=== PATIENT | female | born 1955 | race Caucasian/White ===

== ENCOUNTER 2017-11-07 23:52 | Emergency (ER) | payer MEDICARE, MEDICAID ==
[2017-11-08] MEDS ORDERED: Albuterol/Ipratropium 3.0-0.5 MG/3 ML Neb Soln NEB ONE (00:25)
[2017-11-08 00:26] VITALS: BP 129/66
--- NOTE | 2017-11-08 00:43 | EDM.PDOC ---
ED HPI GENERAL MEDICAL PROBLEM - General Chief Complaint: Respiratory Problem Stated Complaint: COUGHING FOR COUPLE MONTHS Time Seen by Provider: 11/08/17 00:20 Source of Information: Reports: Patient History Limitations: Reports: No Limitations - History of Present Illness INITIAL COMMENTS - FREE TEXT/NARRATIVE: 62-year-old female, chronic smoker who was at a cough for 2 months without significant production or fever. Tonight she finally just got tired of it and came into the emergency room. No chest pain, nausea or vomiting. She does break out in sweats when she coughs so hard. Onset: Unknown/Unsure (Several months) Severity: Moderate (Cough is very persistent and uncomfortable) Associated Symptoms: Reports: Diaphoresis, Malaise, Shortness of Breath. 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: Musculoskeletal History: Reports: RA Psychiatric History: Reports: Depression - Infectious Disease History Infectious Disease History: Reports: Chicken Pox - Past Surgical History Musculoskeletal Surgical History: Reports: Hip Replacement Social & Family History - Tobacco Use Smoking Status *Q: Current Every Day Smoker Years of Tobacco use: 45 Packs/Tins Daily: 0.5 Used Tobacco, but Quit: No Second Hand Smoke Exposure: Yes - Caffeine Use Caffeine Use: Reports: Coffee, Soda - Recreational Drug Use Recreational Drug Use: No ED ROS GENERAL - Review of Systems Review Of Systems: See Below Constitutional: Denies: Fever, Chills Respiratory: Reports: Shortness of Breath, Wheezing, Cough. Denies: Sputum Cardiovascular: Denies: Chest Pain GI/Abdominal: Denies: Abdominal Pain, Nausea, Vomiting Skin: Reports: Diaphoresis Neurological: Denies: Headache ED EXAM, GENERAL - Physical Exam Exam: See Below Exam Limited By: No Limitations General Appearance: Alert, No Apparent Distress (Looks uncomfortable because of the persistent dry cough) Head: Atraumatic Respiratory/Chest: No Respiratory Distress, Crackles (Bibasilar crackles and diffuse expiratory wheezes are present) Cardiovascular: Regular Rate, Rhythm Extremities: Pedal Edema (Trace symmetric edema), Other (Patient has significant ulnar deviation of the MP joints from rheumatoid arthritis) Neurological: Alert, Oriented Skin Exam: Warm, Dry Course - Vital Signs Last Recorded V/S: Last Vital Signs Temp 97.9 F 11/08/17 00:12 Pulse 86 11/08/17 00:12 Resp 24 H 11/08/17 00:12 BP 129/66 11/08/17 00:12 Pulse Ox 95 11/08/17 00:30 - Orders/Labs/Meds Orders: Active Orders 24 hr Category Date Time Status RT Aerosol Therapy [RC] ASDIRECTED Care 11/08/17 00:25 Active Chest 2V [CR] Routine Exams 11/08/17 00:24 Taken Meds: Medications Discontinued Medications Generic Name Dose Route Start Last Admin Trade Name Ken PRN Reason Stop Dose Admin Albuterol/Ipratropium 3 ml 11/08/17 00:25 11/08/17 00:38 Duoneb 3.0-0.5 Mg/3 Ml NEB 11/08/17 00:26 3 ml ONETIME ONE Administration - Re-Assessments/Exams Free Text/Narrative Re-Assessment/Exam: 11/08/17 00:52 A DuoNeb was given a two-view chest x-ray obtained. No obvious infiltrates are seen, patient x-ray is stable from 4 months prior. Some objective and subjective improvement was seen after the DuoNeb. Patient will be discharged on a course of Zithromax, 60 mg of prednisone daily for 5 days, an albuterol inhaler to use as needed and benzonatate Perles for cough suppression. She should recheck in 3-5 days if not improving as a bronchoscopy or further studies may be needed. Departure - Departure Time of Disposition: 01:11 Disposition: Home, Self-Care 01 Condition: Good Clinical Impression: Bronchitis, Rheumatoid arthritis - Discharge Information Instructions: Acute Bronchitis, Adult, [id number] Referrals: Roberto Lopez MD [Primary Care Provider] - Forms: ED Department Discharge Care Plan Goals: Take 6 pills of prednisone daily with food for 5 consecutive days. Take course of Zithromax as directed, and use benzonatate Perles for cough suppression as directed. 1 to 2 puffs off the inhaler every 3-4 hours may help, and recheck in 4-5 days if not improving as you may need further workup or evaluation. - My Orders Last 24 Hours: My Active Orders 11/08/17 00:24 Chest 2V [CR] Routine 11/08/17 00:25 RT Aerosol Therapy [RC] ASDIRECTED - Assessment/Plan Last 24 Hours: My Active Orders 11/08/17 00:24 Chest 2V [CR] Routine 11/08/17 00:25 RT Aerosol Therapy [RC] ASDIRECTED
--- NOTE | 2017-11-08 10:17 | CR ---
CHEST: 2 view CLINICAL HISTORY:Dyspnea COMPARISON:2015 FINDINGS: Heart size is normal. There is some cephalization of the pulmonary vascularity. There is d iffuse interstitial prominence. This is increased since 2015. There are no effusions. IMPRESSION: Vascular cephalization and interstitial prominence suggests the CHF. Some of this inters titial prominence may be chronic
== END 2017-11-08 01:11 | disposition home or self-care (01) ==
LOC: JP.ED 23:52
DX: J40 Bronchitis, not specified as acute or chronic (principal); M06.9 Rheumatoid arthritis, unspecified; F17.210 Nicotine dependence, cigarettes, uncomplicated
CPT/HCPCS: 71046; 71046-26; 94640; 99284-25; J7620-GY

== ENCOUNTER → 2018-07-06 | Outpatient (CLI) | payer MEDICARE, MEDICAID ==
--- NOTE | 2018-07-07 13:29 | CRLCT ---
Examination: CT chest Indication: Pulmonary nodule Comparison: Chest CT dated 12/01/2017 Technique: Contiguous axial CT images of the chest were acquired without IV contrast. Coronal and sagittal reformations generated and reviewed. Findings: Extensive reticular lines are noted in the periphery of the lungs, greatest in the lung bases, but also noted in the upper lungs as well. There is mild honeycombing noted in the lung bases. No traction bronchiectasis. No significant ground-glass opacities. There is a 6 millimeter left upper lobe density on axial image 51 which is unchanged from 1 year prior. It appears flat on the sagittal reformations suggesting that it is scar tissue rather than a true nodule. No additional pulmonary nodules are identified though the reticular opacities could obscure some small nodules. Central airways are patent. Pleural spaces are clear. Normal heart size. Coronary artery calcifications. No pericardial effusion. Normal caliber main pulmonary artery. Normal course and caliber of thoracic aorta. No enlarged mediastinal, axillary, or supraclavicular lymphadenopathy by CT size criteria. Postsurgical changes at the diaphragmatic hiatus with a small hiatal hernia is noted. Visualized portions of thyroid unremarkable. In the upper abdomen, there is some contour irregularity of the left kidney which appeared to be renal lesion on the prior contrast enhanced CT. No acute or aggressive appearing osseous lesions. Impression: 1. Unchanged subpleural fibrosis, worst in lung bases with some mild areas of honeycombing. This is suggestive of UIP. It is not significantly progressed since the prior examination. 2. 6 millimeter nodular density in left upper lobe is unchanged from prior exam. No new or enlarging pulmonary nodules are identified. 3. Unchanged small diaphragmatic hernia. 4. Unchanged possible mass in left kidney which is not well characterized on a noncontrast examination. This could be a dense cyst. A malignancy is not excluded. If this has not been worked up in the interval, recommend renal ultrasound for further characterization. Please note that all CT scans at this facility use dose modulation, iterative reconstruction, and/or weight-based dosing when appropriate to reduce radiation dose to as low as reasonably achievable. Dictated by Garry Elaine MD @ Jul 07 2018 12:50PM Signed by Dr. Garry Elaine @ Jul 07 2018 1:27PM
== END | disposition home or self-care (01) ==
LOC: JP.CT 10:54
PROVIDERS: ATTEND Family Medicine
DX: R91.8 Other nonspecific abnormal finding of lung field (principal); J94.1 Fibrothorax; J98.4 Other disorders of lung; K44.9 Diaphragmatic hernia without obstruction or gangrene
CPT/HCPCS: 71250

== ENCOUNTER 2018-07-20 07:44 | Emergency (ER) | payer MEDICARE, MEDICAID ==
[2018-07-20] MEDS ORDERED: Amoxicillin/Clavulanate K 875-125 MG Tab PO ONE (07:46)
[2018-07-20] MEDS ORDERED: Acetaminophen/oxyCODONE 325-5 MG Tab PO ONE (07:52)
[2018-07-20] MEDS ORDERED: Lidocaine 2% 20 ML MDV INJECT ONE (07:53)
[2018-07-20] MEDS ORDERED: Diphtheria,Pertussis(Acell),Tetanus Vaccine 0.5 ML SDV IM ONE (07:53)
[2018-07-20] MEDS ORDERED: Bacitracin Oint 1 GM U/D Packet TOP ONE (07:55)
--- NOTE | 2018-07-20 07:59 | EDM.PDOC ---
ED HPI GENERAL MEDICAL PROBLEM - General Chief Complaint: Bite:Animal, Insect Stated Complaint: DOG BITE RIGHT ARM Time Seen by Provider: 07/20/18 07:45 Source of Information: Reports: Patient, Family, Old Records History Limitations: Reports: No Limitations - History of Present Illness INITIAL COMMENTS - FREE TEXT/NARRATIVE: 62 yo female presents after being bitten by her daughter's dog this morning. The dog is fully vaccinated. She herself may be due for a tetanus booster. There was not a lot of bleeding at home. She denies numbness of that right hand/ arm. 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 (see below) (none) - Related Data Allergies Allergy/AdvReac Type Severity Reaction Status Date / Time No Known Allergies Allergy Verified 12/01/17 20:42 Home Meds: Home Meds Cyclobenzaprine [Flexeril] 5 mg PO TID PRN 03/21/13 [History] Pramipexole [Mirapex] 0.5 mg PO TID 03/21/13 [History] Magnesium Hydroxide [Milk of Magnesia] 30 ml PO DAILY PRN #2 ml 05/17/14 [Rx] Albuterol Sulfate [Albuterol Sulfate Hfa] 1 - 2 puff IH Q4H PRN 06/20/18 [ History] Benzonatate [Tessalon Perle] 100 mg PO TID 06/20/18 [History] Calcium Carbonate/Vitamin D3 [Calcium 600 + D3 Softgel] 1 each PO BID 06/20/18 [ History] Cholecalciferol (Vitamin D3) [Vitamin D3] 1,000 unit PO DAILY 06/20/18 [History] Furosemide [Lasix] 20 mg PO DAILY PRN 06/20/18 [History] Ipratropium/Albuterol Sulfate [Iprat-Albut 0.5-3(2.5) MG/3 ML] 3 ml IH Q6H PRN 06/20/18 [History] Nystatin [Mycostatin] 5 ml PO QID 06/20/18 [History] Omeprazole 40 mg PO ACBREAKFAST 06/20/18 [History] Oxybutynin Chloride 5 mg PO BID 06/20/18 [History] guaiFENesin [Mucinex] 600 mg PO BID 06/20/18 [History] Past Medical History HEENT History: Reports: Impaired Vision 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: Musculoskeletal History: Reports: RA, Other (See Below) Other Musculoskeletal History: Restless Legs Psychiatric History: Reports: Depression - Infectious Disease History Infectious Disease History: Reports: Chicken Pox - Past Surgical History HEENT Surgical History: Reports: None Cardiovascular Surgical History: Reports: None Musculoskeletal Surgical History: Reports: Hip Replacement Social & Family History - Caffeine Use Caffeine Use: Reports: Coffee ED ROS GENERAL - Review of Systems Review Of Systems: See Below Constitutional: Reports: No Symptoms Respiratory: Reports: No Symptoms Cardiovascular: Reports: No Symptoms GI/Abdominal: Reports: No Symptoms Musculoskeletal: Reports: Arm Pain (right) Skin: Reports: Wound (gaping large irregular laceration to the prox/lateral R forearm(dog bite).) Neurological: Reports: No Symptoms Psychiatric: Reports: No Symptoms ED EXAM, ANIMAL BITE - Physical Exam Exam: See Below Exam Limited By: No Limitations General Appearance: Alert, WD/WN, No Apparent Distress Extremities: Other (large wound to the prox/lateral R forearm. No active bleeding. ) Neurological: Alert, Oriented, CN II-XII Intact, Normal Cognition, No Motor/ Sensory Deficits Psychiatric: Normal Affect, Normal Mood Skin Exam: Normal Color, Other (laceration R forearm.) Lymphadenopathy: Bilateral: No Adenopathy ED ANIMAL BITE PROCEDURES - Laceration/Wound Repair Right Lateral Arm Lac/Wound Length In cm: 10 Appearance: Subcutaneous, Irregular Distal NVT: Neuro & Vascular Intact, No Tendon Injury Anesthetic Type: Local Local Anesthesia - Lidocaine (Xylocaine): 2% Plain Local Anesthetic Volume: Other (18) Skin Prep: Saline Saline Irrigation (cc's): 180 Exploration/Debridement/Repair: Wound Explored, Minimal Debridement Closed With: Sutures Suture Size: other (4-0 and 5-0) # of Sutures: 14 Suture Type: Nylon, Interrupted, Simple, Mattress (vertical) Drain Placement: No Sterile Dressing Applied: Nurse Tetanus Status Addressed: Yes Complications: No Course - Vital Signs Last Recorded V/S: Last Vital Signs Temp 36.0 C 07/20/18 08:06 Pulse 83 07/20/18 08:06 Resp 22 H 07/20/18 08:06 BP 136/82 07/20/18 08:06 Pulse Ox 94 L 07/20/18 08:06 - Orders/Labs/Meds Orders: Active Orders 24 hr Category Date Time Status Vaccines to be Administered [RC] PER UNIT ROUTINE Care 07/20/18 07:53 Active Meds: Medications Discontinued Medications Generic Name Dose Route Start Last Admin Trade Name Ken PRN Reason Stop Dose Admin Amoxicillin/Clavulanate Potassium 1 tab 07/20/18 07:46 07/20/18 07:58 Augmentin 875 Mg/125 Mg PO 07/20/18 07:47 1 tab ONETIME ONE Administration Bacitracin 3 dose 07/20/18 07:55 Bacitracin Oint 1 Gm TOP 07/20/18 07:56 ONETIME ONE Diphtheria/Tetanus/Acell Pertussis 0.5 ml 07/20/18 07:53 07/20/18 08:00 Adacel IM 07/20/18 07:54 0.5 ml .ONCE ONE Administration Lidocaine HCl 20 ml 07/20/18 07:53 07/20/18 08:01 Xylocaine 2% INJECT 07/20/18 07:54 20 ml ONETIME ONE Administration Oxycodone/Acetaminophen 1 tab 07/20/18 07:52 07/20/18 07:58 Percocet 325-5 Mg PO 07/20/18 07:53 1 tab ONETIME ONE Administration Departure - Departure Time of Disposition: 09:00 Disposition: Home, Self-Care 01 Condition: Fair Clinical Impression: Dog bite of forearm Qualifiers: Encounter type: initial encounter Laterality: right Qualified Code(s): S51.851A - Open bite of right forearm, initial encounter; W54.0XXA - Bitten by dog, initial encounter Arm laceration Qualifiers: Encounter type: initial encounter Laterality: right Qualified Code(s): S41.111A - Laceration without foreign body of right upper arm, initial encounter - Discharge Information *PRESCRIPTION DRUG MONITORING PROGRAM REVIEWED*: No *COPY OF PRESCRIPTION DRUG MONITORING REPORT IN PATIENT SHELLY: No Instructions: Animal Bite, Adult, [id number] Referrals: PCP,None [Primary Care Provider] - Forms: ED Department Discharge Additional Instructions: Clean wound twice daily with soap and water. Dry. Apply Bacitracin ointment and a new dressing. Take acetaminophen 1000 mg every 6 hrs as needed for pain relief. Wound check with your doctor on Wednesday, call for an appt. Stitches out in 10 days. Take Augmentin every 12 hrs with food until gone. - My Orders Last 24 Hours: My Active Orders 07/20/18 07:53 Vaccines to be Administered [RC] PER UNIT ROUTINE - Assessment/Plan Last 24 Hours: My Active Orders 07/20/18 07:53 Vaccines to be Administered [RC] PER UNIT ROUTINE
[2018-07-20 08:00] VITALS: BP 136/82
== END 2018-07-20 09:26 | disposition home or self-care (01) ==
LOC: JP.ED 07:44
DX: S51.851A Open bite of right forearm, initial encounter (principal); F32.9 Major depressive disorder, single episode, unspecified; Z79.899 Other long term (current) drug therapy; Z23 Encounter for immunization; W54.0XXA Bitten by dog, initial encounter
CPT/HCPCS: 12004; 90471; 90715; 99282; 99283; A9270; J2001

== ENCOUNTER 2020-03-28 15:43 | Inpatient (IN) | payer MEDICARE, MEDICAID ==
[2020-03-28] MEDS ORDERED: Albuterol 0.083% 2.5 MG/3 ML Neb Soln NEB PRN (15:51)
[2020-03-28] MEDS ORDERED: Sodium Chloride 0.9% 10 ML Syringe FLUSH PRN (15:51)
[2020-03-28] MEDS ORDERED: Polyethylene Glycol 3350 Powder 17 GM Packet PO PRN (15:51)
[2020-03-28] MEDS ORDERED: Ondansetron 4 MG/2 ML SDV IV PRN (15:51)
[2020-03-28] MEDS ORDERED: Acetaminophen 325 MG Tab PO PRN (15:51)
--- NOTE | 2020-03-28 16:05 | PCM.HP.2 ---
H&P History of Present Illness - General Date of Service: 03/28/20 Admit Problem/Dx: Admission Diagnosis/Problem Admission Diagnosis/Problem Hypoxia Source of Information: Patient, Old Records, Provider, RN Notes Reviewed History Limitations: Reports: No Limitations - History of Present Illness Initial Comments - Free Text/Narative: Ms. Montano is a 64-year-old woman who was admitted as a direct admission from the clinic with hypoxia and increase in peripheral edema secondary to underlying diastolic congestive heart failure and pulmonary fibrosis. Over the past few we eks she is experienced progressive increase in peripheral edema associated with weight gain. She chronically takes diuretic therapy and despite recent increase in dose there has not been significant improvement in her peripheral edema. She is short of breath with activity but denies that this is significantly worse over the past few weeks. Prior echocardiogram in 2019 did document moderate diastolic congestive heart failure. At that time left ventricular systolic function was within normal range. She has known pulmonary fibrosis and does have supplemental oxygen available for use at home, but mainly uses this at night and rarely during the day. She denies recent symptoms of infection and has had no history of pulmonary embolism. - Related Data Allergies/Adverse Reactions: Allergies Allergy/AdvReac Type Severity Reaction Status Date / Time No Known Allergies Allergy Verified 12/01/17 20:42 Home Medications: Home Meds Cyclobenzaprine [Flexeril] 5 mg PO TID PRN 03/21/13 [History] Pramipexole [Mirapex] 2.5 mg PO BEDTIME MDD 5 tabs of 0.5mg 03/21/13 [History] Cholecalciferol (Vitamin D3) [Vitamin D3] 1,000 unit PO DAILY 06/20/18 [History] Ipratropium/Albuterol Sulfate [Iprat-Albut 0.5-3(2.5) MG/3 ML] 3 ml IH Q6H PRN 06/20/18 [History] Oxybutynin Chloride 5 mg PO BID 06/20/18 [History] guaiFENesin [Mucinex] 600 mg PO BID PRN 06/20/18 [History] Past Medical History HEENT History: Reports: Impaired Vision 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: Musculoskeletal History: Reports: RA, Other (See Below) Other Musculoskeletal History: Restless Legs Psychiatric History: Reports: Depression - Infectious Disease History Infectious Disease History: Reports: Chicken Pox - Past Surgical History HEENT Surgical History: Reports: None Cardiovascular Surgical History: Reports: None Musculoskeletal Surgical History: Reports: Hip Replacement Social & Family History - Caffeine Use Caffeine Use: Reports: Coffee H&P Review of Systems - Review of Systems: Review Of Systems: See Below General: Reports: No Symptoms HEENT: Reports: No Symptoms Pulmonary: Reports: Shortness of Breath, Cough. Denies: Wheezing, Pleuritic Chest Pain, Sputum, Hemoptysis Cardiovascular: Reports: Dyspnea on Exertion, Edema. Denies: Chest Pain, Palpitations, Orthopnea, PND, Lightheadedness Gastrointestinal: Reports: No Symptoms Genitourinary: Reports: No Symptoms Musculoskeletal: Reports: No Symptoms Skin: Reports: No Symptoms Psychiatric: Reports: No Symptoms Neurological: Reports: No Symptoms Hematologic/Lymphatic: Reports: No Symptoms Immunologic: Reports: No Symptoms Exam - Exam Exam: See Below - Exam Quality Assessment: DVT Prophylaxis. No: Supplemental Oxygen General: Alert, Oriented, Cooperative, Mild Distress HEENT: Conjunctiva Clear, Hearing Intact, Mucosa Moist & [place], Normal Nasal Septum, Posterior Pharynx Clear, Pupils Equal Neck: Supple, Trachea Midline, +2 Carotid Pulse wo Bruit Lungs: Decreased Breath Sounds, Crackles. No: Rales, Rhonchi, Wheezing Cardiovascular: Regular Rate, Regular Rhythm, Normal S1, Normal S2. No: Systolic Murmur, Diastolic Murmur GI/Abdominal Exam: Soft, Non-Tender, No Organomegaly, No Distention Extremities: Non-Tender, Pedal Edema Skin: Warm, Dry, Intact Neurological: Cranial Nerves Intact, Strength Equal Bilateral, Normal Speech, Normal Tone, Sensation Intact. No: Focal Deficit Neuro Extensive - Mental Status: Alert, Oriented x3, Normal Mood/Affect, Normal Cognition, Memory Intact - Patient Data Result Diagrams: 03/28/20 16:40 03/28/20 16:40 *Q Meaningful Use (ADM) - VTE Risk Assess *Q Each Risk Factor Represents 1 Point: Swollen Legs, Current, Obesity ( BMI > 25 kg/m2), Abnormal Pulmonary Function (COPD) Total Score 1 Point Risk Factors: 3 Each Risk Factor Represents 2 Points: Age 60 - 74 Years Total Score 2 Point Risk Factors: 2 Each Risk Factor Represents 3 Points: None Total Score 3 Point Risk Factors: 0 Each Risk Factor Represents 5 Points: None Total Score 5 Point Risk Factors: 0 Venous Thromboembolism Risk Factor Score *Q: 5 Problem List Initiated/Reviewed/Updated: Yes Orders Last 24hrs: Active Orders 24 hr Category Date Time Status Patient Status [ADT] Routine ADT 03/28/20 15:51 Active Cardiac Monitoring [RC] .As Directed Care 03/28/20 15:52 Active Height and Weight [RC] DAILY Care 03/28/20 15:51 Active Intake and Output [RC] QSHIFT Care 03/28/20 15:51 Active Notify Provider Vital Signs [RC] ASDIRECTED Care 03/28/20 15:51 Active Oxygen Therapy [RC] PRN Care 03/28/20 15:51 Active Pulse Oximetry [RC] CONTINUOUS Care 03/28/20 15:52 Active RT Aerosol Therapy [RC] ASDIRECTED Care 03/28/20 15:54 Active Up With Assistance [RC] ASDIRECTED Care 03/28/20 15:51 Active Up to Chair [RC] QID Care 03/28/20 15:51 Active VTE/DVT Education [RC] Per Unit Routine Care 03/28/20 15:51 Active Vital Signs [RC] Q4H Care 03/28/20 15:51 Active 2 Gram Sodium Diet [DIET] Diet 03/28/20 Lunch Active Ang Chest [CT] Stat Exams 03/28/20 15:56 Ordered BLOOD GAS ARTERIAL [BG] Stat Lab 03/28/20 15:51 Ordered C-REACTIVE PROTEIN [CHEM] Stat Lab 03/28/20 15:51 Ordered CBC WITH AUTO DIFF [HEME] Stat Lab 03/28/20 15:51 Ordered COMPREHENSIVE METABOLIC PN,CMP [CHEM] Stat Lab 03/28/20 15:51 Ordered CORONAVIRUS COVID-19, OPAL Stat Lab 03/28/20 15:56 Ordered MAGNESIUM [CHEM] Stat Lab 03/28/20 15:51 Ordered PROCALCITONIN [CHEM] Stat Lab 03/28/20 15:56 Ordered TROPONIN I [CHEM] Stat Lab 03/28/20 15:51 Ordered Acetaminophen [TylenoL] Med 03/28/20 15:51 Ordered 650 mg PO Q4H PRN Albuterol [Proventil Neb Soln] Med 03/28/20 15:51 Ordered 2.5 mg NEB Q4H PRN Enoxaparin [Lovenox] Med 03/28/20 16:00 Ordered 40 mg SUBCUT DAILY Ondansetron [Zofran] Med 03/28/20 15:51 Ordered 4 mg IV Q4H PRN Sodium Chloride 0.9% [Saline Flush] Med 03/28/20 15:51 Ordered 10 ml FLUSH ASDIRECTED PRN polyethylene glycoL 3350 [MiraLAX] Med 03/28/20 15:51 Ordered 17 gm PO DAILY PRN Saline Lock Insert [OM.PC] Routine Oth 03/28/20 15:51 Ordered Resuscitation Status Routine Resus Stat 03/28/20 15:51 Ordered Medication Orders Acetaminophen (Tylenol) 650 mg PO Q4H PRN PRN Reason: Pain (Mild 1-3)/fever Albuterol (Proventil Neb Soln) 2.5 mg NEB Q4H PRN PRN Reason: Shortness Of Breath/wheezing Enoxaparin Sodium (Lovenox) 40 mg SUBCUT DAILY K[place]LEY Ondansetron HCl (Zofran) 4 mg IV Q4H PRN PRN Reason: Nausea/Vomiting Polyethylene Glycol (Miralax) 17 gm PO DAILY PRN PRN Reason: Constipation Sodium Chloride (Saline Flush) 10 ml FLUSH ASDIRECTED PRN PRN Reason: Keep Vein Open Assessment/Plan Comment:: ASSESSMENT AND PLAN HYPOXIC RESPIRATORY COMPROMISE-she has a known history of diastolic heart failure as well as pulmonary fibrosis and does use supplemental oxygen at home, although not as instructed. She was found to be hypoxic on initial presentation to the clinic. On initial presentation here at the hospital her oxygen saturation is in the mid 90s on room air. -CT angiogram of the chest to evaluate for pulmonary emboli, fluid, and/or infection -Supplemental oxygen as needed -Continuous pulse oximetry PERIPHERAL EDEMA-she has known diastolic congestive heart failure and given her pulmonary disease may have a component of cor pulmonale. -Furosemide 40 mg IV now -Echocardiogram not available until April 01, may need to be obtained as an outpatient DIASTOLIC CONGESTIVE HEART FAILURE -Echocardiogram as above PULMONARY FIBROSIS MAINTENANCE ISSUES -DVT prophylaxis; Lovenox 40 mg subcu daily -GI prophylaxis; not indicated -Hicks catheter; not indicated -Nutrition; 2 g sodium diet -Nicotine dependence; not required CODE STATUS-FULL CODE ADMISSION STATUS-patient will be admitted to inpatient status, expect at least a 2 night hospital stay for evaluation and management of problems as outlined above. At the time of this admission I do not reasonably expected evaluation and management of this problem will require more than a 96 hour hospital stay. DISPOSITION-anticipate discharge to home after the hospital stay. PRIMARY CARE PROVIDER-Dr. Winter - Mortality Measure Prognosis:: Good
[2020-03-28 17:30] LABS: CORONAVIRUS COVID-19 NAA NEGATIVE (NEGATIVE)
[2020-03-28] MEDS ORDERED: Sodium Chloride 0.9% 10 ML Syringe FLUSH ONE (17:34)
[2020-03-28] MEDS ORDERED: Albuterol/Ipratropium 3.0-0.5 MG/3 ML Neb Soln INH PRN (17:41)
[2020-03-28] MEDS ORDERED: Cyclobenzaprine 10 MG Tab PO PRN (17:41)
[2020-03-28] MEDS ORDERED: Furosemide 40 MG/4 ML VIAL IVPUSH ONE (17:42)
[2020-03-28] MEDS ORDERED: Sodium Chloride 0.9% 100 ML IV SCH (17:45)
[2020-03-28] MEDS ORDERED: Iopamidol 755 Mg/ML 100 ML Bottle IV SCH (17:45)
[2020-03-28] MEDS: Enoxaparin 40 MG/0.4 ML Syringe SUBCUT SCH (18:07)
--- NOTE | 2020-03-28 19:34 | CRLCT ---
INDICATION: Hypoxia COMPARISON: 11/10/2018 TECHNIQUE: CT volumetric acquisition was performed of the thorax during intravenous infusion of 100 cc Isovue 370 nonionic intravenous contrast. Please note that all CT scans at this facility use dose modulation, iterative reconstruction, and/or weight-based dosing when appropriate to reduce radiation dose to as low as reasonably achievable. FINDINGS: No pulmonary embolism is present. Extensive bilateral pulmonary fibrosis has increased since the prior study with areas honeycombing in a peripheral distribution within the mid and lower lung zones. No pleural effusion. No pneumothorax. Mild mediastinum and bilateral hilar adenopathy. No compression fracture. Upper abdomen unremarkable. IMPRESSION: No evidence of pulmonary thromboembolism. Extensive bilateral pulmonary fibrosis which has worsened since the prior study. Please note that all CT scans at this facility use dose modulation, iterative reconstruction, and/or weight-based dosing when appropriate to reduce radiation dose to as low as reasonably achievable. Dictated by Roberto Mccarthy MD @ Mar 28 2020 7:20PM Signed by Dr. Roberto Mccarthy @ Mar 28 2020 7:33PM
[2020-03-28] MEDS: Pramipexole 0.5 MG Tab PO SCH (20:57)
[2020-03-28] MEDS: Oxybutynin 5 MG Tab PO SCH (20:57)
[2020-03-28] MEDS ORDERED: Pramipexole 0.5 MG Tab PO SCH (21:00)
[2020-03-29] MEDS ORDERED: Furosemide 40 MG/4 ML VIAL IVPUSH ONE ×2 (08:20→18:00)
[2020-03-29] MEDS: Oxybutynin 5 MG Tab PO SCH ×2 (09:35→20:47)
--- NOTE | 2020-03-29 09:53 | PCM.PN ---
- General Info Date of Service: 03/29/20 Subjective Update: Ms. Montano has been stable since admission through the clinic yesterday. During the night did require use of supplemental oxygen. She has had a good diuresis with initial dose of furosemide and good improvement in her peripheral edema. CT scan of the chest with contrast showed no evidence of pulmonary emboli, infection, or fluid. Scan did document significant scarring consistent with pulmonary fibrosis. Functional Status: Reports: Tolerating Diet, Urinating - Review of Systems General: Reports: Weakness, Fatigue. Denies: Fever, Chills Pulmonary: Reports: Shortness of Breath, Cough. Denies: Pleuritic Chest Pain, Sputum, Hemoptysis, Wheezing Cardiovascular: Reports: Dyspnea on Exertion, Edema. Denies: Chest Pain, Palpitations, Orthopnea, PND, Lightheadedness Gastrointestinal: Reports: No Symptoms - Patient Data Vitals - Most Recent: Last Vital Signs Temp 97.5 F 03/29/20 08:00 Pulse 81 03/28/20 18:00 Resp 19 03/29/20 08:00 BP 116/66 03/29/20 08:00 Pulse Ox 95 03/29/20 08:00 Weight - Most Recent: 222 lb 4.814 oz I&O - Last 24 Hours: Intake & Output 03/28/20 03/29/20 03/29/20 22:59 06:59 14:59 Intake Total 480 520 Output Total 1750 400 Balance -1270 120 Lab Results Last 24 Hours: Laboratory Results - last 24 hr 03/28/20 03/28/20 03/28/20 Range/Units 16:40 16:40 16:40 WBC 9.2 (4.5-11.0) K/uL RBC 4.66 (3.30-5.50) M/uL Hgb 11.4 L (12.0-15.0) g/dL Hct 37.0 (36.0-48.0) % MCV 79 L (80-98) fL MCH 25 L (27-31) pg MCHC 31 L (32-36) % Plt Count 269 (150-400) K/uL Neut % (Auto) 63 (36-66) % Lymph % (Auto) 20 L (24-44) % Bonner % (Auto) 11 H (2-6) % Eos % (Auto) 5 H (2-4) % Baso % (Auto) 1 (0-1) % Sodium 141 (140-148) mmol/L Potassium 4.1 (3.6-5.2) mmol/L Chloride 104 (100-108) mmol/L Carbon Dioxide 26 (21-32) mmol/L Anion Gap 10.9 (5.0-14.0) mmol/L BUN 21 H D (7-18) mg/dL Creatinine 0.8 (0.6-1.0) mg/dL Est Cr Clr Drug Dosing TNP Estimated GFR (MDRD) > 60 (>60) Glucose 95 (74-106) mg/dL Calcium 9.5 (8.5-10.1) mg/dL Magnesium 2.1 (1.8-2.4) mg/dL Total Bilirubin 0.5 (0.2-1.0) mg/dL AST 20 (15-37) U/L ALT 24 (12-78) U/L Alkaline Phosphatase 165 H (46-116) U/L Troponin I < 0.017 (0.000-0.056) ng/mL C-Reactive Protein 2.19 H (0.0-0.3) mg/dL Total Protein 7.0 (6.4-8.2) g/dL Albumin 3.1 L (3.4-5.0) g/dL Globulin 3.9 H (2.3-3.5) g/dL Albumin/Globulin Ratio 0.8 L (1.2-2.2) Procalcitonin < 0.05 ng/mL Influenza Type A RNA (NEGATIVE) RSV RNA (INAAT) (NEGATIVE) Influenza Type B RNA (NEGATIVE) SARS-CoV-2 RNA (OPAL) (NEGATIVE) 03/28/20 03/29/20 Range/Units 16:45 04:10 WBC (4.5-11.0) K/uL RBC (3.30-5.50) M/uL Hgb (12.0-15.0) g/dL Hct (36.0-48.0) % MCV (80-98) fL MCH (27-31) pg MCHC (32-36) % Plt Count (150-400) K/uL Neut % (Auto) (36-66) % Lymph % (Auto) (24-44) % Bonner % (Auto) (2-6) % Eos % (Auto) (2-4) % Baso % (Auto) (0-1) % Sodium 140 (140-148) mmol/L Potassium 4.1 (3.6-5.2) mmol/L Chloride 104 (100-108) mmol/L Carbon Dioxide 27 (21-32) mmol/L Anion Gap 8.6 (5.0-14.0) mmol/L BUN 21 H (7-18) mg/dL Creatinine 0.7 (0.6-1.0) mg/dL Est Cr Clr Drug Dosing 77.01 Estimated GFR (MDRD) > 60 (>60) Glucose 106 (74-106) mg/dL Calcium 8.8 (8.5-10.1) mg/dL Magnesium (1.8-2.4) mg/dL Total Bilirubin (0.2-1.0) mg/dL AST (15-37) U/L ALT (12-78) U/L Alkaline Phosphatase (46-116) U/L Troponin I (0.000-0.056) ng/mL C-Reactive Protein (0.0-0.3) mg/dL Total Protein (6.4-8.2) g/dL Albumin (3.4-5.0) g/dL Globulin (2.3-3.5) g/dL Albumin/Globulin Ratio (1.2-2.2) Procalcitonin ng/mL Influenza Type A RNA Negative (NEGATIVE) RSV RNA (INAAT) Negative (NEGATIVE) Influenza Type B RNA Negative (NEGATIVE) SARS-CoV-2 RNA (OPAL) Negative (NEGATIVE) Med Orders - Current: Current Medications Acetaminophen (Tylenol) 650 mg PO Q4H PRN PRN Reason: Pain (Mild 1-3)/fever Albuterol (Proventil Neb Soln) 2.5 mg NEB Q4H PRN PRN Reason: Shortness Of Breath/wheezing Last Admin: 03/29/20 08:09 Dose: 2.5 mg Documented by: Albuterol/Ipratropium (Duoneb 3.0-0.5 Mg/3 Ml) 3 ml INH Q6H PRN PRN Reason: Shortness of Breath Cyclobenzaprine HCl (Flexeril) 5 mg PO TID PRN PRN Reason: Muscle Spasm Enoxaparin Sodium (Lovenox) 40 mg SUBCUT Q24H [facility] Last Admin: 03/28/20 18:07 Dose: 40 mg Documented by: Furosemide (Lasix) 40 mg IVPUSH NOW ONE Stop: 03/29/20 18:01 Ondansetron HCl (Zofran) 4 mg IV Q4H PRN PRN Reason: Nausea/Vomiting Oxybutynin Chloride (Oxybutynin) 5 mg PO BID [facility] Last Admin: 03/29/20 09:35 Dose: 5 mg Documented by: Polyethylene Glycol (Miralax) 17 gm PO DAILY PRN PRN Reason: Constipation Pramipexole Dihydrochloride (Mirapex) 4 mg PO BEDTIME [facility] Last Admin: 03/28/20 20:57 Dose: 4 mg Documented by: Sodium Chloride (Saline Flush) 10 ml FLUSH ASDIRECTED PRN PRN Reason: Keep Vein Open Last Admin: 03/28/20 19:18 Dose: 10 ml Documented by: Discontinued Medications Furosemide (Lasix) 40 mg IVPUSH NOW ONE Stop: 03/28/20 17:43 Last Admin: 03/28/20 18:01 Dose: 40 mg Documented by: Furosemide (Lasix) 40 mg IVPUSH NOW ONE Stop: 03/29/20 08:21 Last Admin: 03/29/20 09:25 Dose: 40 mg Documented by: Sodium Chloride (Normal Saline) 100 mls @ 3 mls/sec IV ASDIRECTED [facility] Last Admin: 03/28/20 19:18 Dose: 3 mls/sec Documented by: Iopamidol (Isovue-370 (76%)) 100 ml IV . DIRECTED [facility] Last Admin: 03/28/20 19:18 Dose: 100 ml Documented by: Sodium Chloride (Saline Flush) 10 ml FLUSH ONETIME ONE Stop: 03/28/20 17:35 Last Admin: 03/28/20 18:00 Dose: 10 ml Documented by: - Exam Quality Assessment: Supplemental Oxygen, DVT Prophylaxis General: Alert, Oriented, Cooperative, Mild Distress Lungs: Normal Respiratory Effort, Crackles. No: Rales, Rhonchi, Wheezing Cardiovascular: Regular Rate, Regular Rhythm, No Murmurs GI/Abdominal Exam: Soft, Non-Tender, No Organomegaly, No Distention Extremities: Non-Tender, Pedal Edema Sepsis Event Note - Evaluation Sepsis Screening Result: No Definite Risk - Focused Exam Vital Signs: Vital Signs Temp Resp BP Pulse Ox 03/29/20 08:00 97.5 F 19 116/66 95 03/29/20 04:00 20 117/69 95 03/29/20 01:46 95 03/28/20 22:59 97.9 F 19 120/68 94 L - Problem List Review Problem List Initiated/Reviewed/Updated: Yes - My Orders Last 24 Hours: My Active Orders 03/28/20 Lunch 2 Gram Sodium Diet [DIET] 03/28/20 15:51 Patient Status [ADT] Routine Height and Weight [RC] DAILY Intake and Output [RC] QSHIFT Notify Provider Vital Signs [RC] ASDIRECTED Oxygen Therapy [RC] PRN Up With Assistance [RC] ASDIRECTED Up to Chair [RC] QID VTE/DVT Education [RC] Per Unit Routine Vital Signs [RC] Q4H Acetaminophen [TylenoL] 650 mg PO Q4H PRN Albuterol [Proventil Neb Soln] 2.5 mg NEB Q4H PRN Ondansetron [Zofran] 4 mg IV Q4H PRN Sodium Chloride 0.9% [Saline Flush] 10 ml FLUSH ASDIRECTED PRN polyethylene glycoL 3350 [MiraLAX] 17 gm PO DAILY PRN Saline Lock Insert [OM.PC] Routine Resuscitation Status Routine 03/28/20 15:52 Pulse Oximetry [RC] CONTINUOUS 03/28/20 15:54 RT Aerosol Therapy [RC] ASDIRECTED 03/28/20 17:41 Albuterol/Ipratropium [DuoNeb 3.0-0.5 MG/3 ML] 3 ml INH Q6H PRN Cyclobenzaprine [Flexeril] 5 mg PO TID PRN 03/28/20 18:00 Enoxaparin [Lovenox] 40 mg SUBCUT Q24H 03/28/20 21:00 Oxybutynin 5 mg PO BID Pramipexole [Mirapex] 4 mg PO BEDTIME 03/29/20 18:00 Furosemide [Lasix] 40 mg IVPUSH NOW ONE 03/30/20 05:00 BASIC METABOLIC PANEL,BMP [CHEM] Timed - Plan Plan:: ASSESSMENT AND PLAN HYPOXIC RESPIRATORY COMPROMISE-she has a known history of diastolic heart f ailure as well as pulmonary fibrosis and does use supplemental oxygen at home. CT angiogram of the chest showed no evidence of pulmonary emboli, infection, or fluid. He did document significant scarring consistent with pulmonary fibrosis -Supplemental oxygen as needed -Continuous pulse oximetry PERIPHERAL EDEMA-she has known diastolic congestive heart failure and given her pulmonary disease may have a component of cor pulmonale. -Furosemide 40 mg IV twice today, reassess in a.m. -Echocardiogram not available until April 01, may need to be obtained as an outpatient DIASTOLIC CONGESTIVE HEART FAILURE -Echocardiogram as above PULMONARY FIBROSIS MAINTENANCE ISSUES -DVT prophylaxis; Lovenox 40 mg subcu daily -GI prophylaxis; not indicated -Hicks catheter; not indicated -Nutrition; 2 g sodium diet -Nicotine dependence; not required CODE STATUS-FULL CODE ADMISSION STATUS-patient will be admitted to inpatient status, expect at least a 2 night hospital stay for evaluation and management of problems as outlined above. At the time of this admission I do not reasonably expected evaluation and management of this problem will require more than a 96 hour hospital stay. DISPOSITION-anticipate discharge to home after the hospital stay. PRIMARY CARE PROVIDER-Dr. Winter
[2020-03-29] MEDS: Enoxaparin 40 MG/0.4 ML Syringe SUBCUT SCH (17:09)
[2020-03-29] MEDS: Pramipexole 0.5 MG Tab PO SCH (20:47)
[2020-03-30 02:58] VITALS: BP 107/78
[2020-03-30 08:21] VITALS: PULSE 82
[2020-03-30] MEDS ORDERED: Potassium Chloride 20 MEQ Tab.ER PO ONE (08:30)
[2020-03-30] MEDS ORDERED: Furosemide 40 MG/4 ML VIAL IVPUSH ONE (08:30)
[2020-03-30] MEDS: Oxybutynin 5 MG Tab PO SCH (09:18)
--- NOTE | 2020-03-30 10:26 | PCM.DCSUM1 ---
Discharge Summary - Hospital Course Brief History: Ms. Montano is a 64-year-old woman who was admitted as a direct admission from the clinic for further evaluation and management of increased peripheral edema and hypoxia. - Discharge Data Discharge Date: 03/30/20 Discharge Disposition: Home, Self-Care 01 Condition: Fair - Referral to Home Health Primary Care Physician: Princess Winter MD - Discharge Diagnosis/Problem(s) (1) Peripheral edema SNOMED Code(s): 121671018 ICD Code: R60.9 - EDEMA, UNSPECIFIED Status: Acute Current Visit: No (2) Hypoxia SNOMED Code(s): 657772833 ICD Code: R09.02 - HYPOXEMIA Status: Acute Current Visit: No (3) Pulmonary fibrosis SNOMED Code(s): 25280462 ICD Code: J84.10 - PULMONARY FIBROSIS, UNSPECIFIED Status: Chronic Current Visit: No (4) Chronic diastolic congestive heart failure SNOMED Code(s): 100345101, 132493854 ICD Code: I50.32 - CHRONIC DIASTOLIC (CONGESTIVE) HEART FAILURE Status: Chronic Current Visit: No - Patient Summary/Data Hospital Course: Ms. Montano is a 64-year-old woman who was admitted as a direct admission from the clinic with hypoxia and increase in peripheral edema secondary to underlying diastolic congestive heart failure and pulmonary fibrosis. Over the past few weeks she is experienced progressive increase in peripheral edema associated with weight gain. She chronically takes diuretic therapy and despite recent increase in dose there has not been significant improvement in her peripheral edema. She is short of breath with activity but denies that this is significantly worse over the past few weeks. Prior echocardiogram in 2019 did document moderate diastolic congestive heart failure. At that time left ventricular systolic function was within normal range. She has known pulmonary fibrosis and does have supplemental oxygen available for use at home, but mainly uses this at night and rarely during the day. She denies recent symptoms of infection and has had no history of pulmonary embolism. On admission CT scan of the chest with contrast showed no evidence of pulmonary emboli, fluid, or infection. She was noted to have significant interstitial scarring consistent with her known history of pulmonary fibrosis, this did appear to have worsened when compared to previous CT scan of the chest. On admission and throughout hospital course she received IV furosemide with good result and marked improvement in her peripheral edema. Edema had not totally resolved but was acutely improved by the time of discharge. She will be discharged home on increased dose of oral furosemide at 40 mg daily and was instructed to follow a strict 2 g sodium diet. We were unable to obtain echocardiogram during hospitalization, outpatient echocardiogram will be obtained on April 01. Follow-up appointment should be scheduled with primary care provider within 1 week and a BMP should be obtained at the time of follow-up appointment. Was felt likely that her ongoing hypoxia secondary to worsening of her pulmonary fibrosis. She was documented to be hypoxic on room air prior to discharge with oxygen saturation of 84% and will be discharged home on continuous supplemental oxygen 2 L/min via nasal cannula. Activity will be as tolerated and she should remain on a strict 2 g sodium diet. - Patient Instructions Diet: Low Sodium Activity: As Tolerated Other/Special Instructions: Please schedule follow-up appointment with primary care provider within 1 week, BMP should be obtained at the time of follow-up appointment. Continue home oxygen 2 L/min via nasal cannula. Please schedule echocardiogram for April 01, to reassess left ventricular systolic and diastolic function. - Discharge Plan *PRESCRIPTION DRUG MONITORING PROGRAM REVIEWED*: Not Applicable *COPY OF PRESCRIPTION DRUG MONITORING REPORT IN PATIENT SHELLY: Not Applicable Prescriptions/Med Rec: Furosemide 40 mg PO DAILY #30 tablet Home Medications: Home Meds Cyclobenzaprine [Flexeril] 5 mg PO TID PRN 03/21/13 [History] Pramipexole [Mirapex] 4 mg PO BEDTIME 03/21/13 [History] Cholecalciferol (Vitamin D3) [Vitamin D3] 1,000 unit PO DAILY 06/20/18 [History] Ipratropium/Albuterol Sulfate [Iprat-Albut 0.5-3(2.5) MG/3 ML] 3 ml IH Q6H PRN 06/20/18 [History] Oxybutynin Chloride 5 mg PO BID 06/20/18 [History] guaiFENesin [Mucinex] 600 mg PO BID PRN 06/20/18 [History] Furosemide 40 mg PO DAILY #30 tablet 03/30/20 [Rx] Referrals: Princess Winter MD [Primary Care Provider] - 04/08/20 1:30 pm (Please arrive 15 minutes early to register for your appointment.) - Discharge Summary/Plan Comment DC Time >30 min.: No - Patient Data Vitals - Most Recent: Last Vital Signs Temp 98.2 F 03/30/20 08:00 Pulse 82 03/30/20 08:00 Resp 20 03/30/20 08:00 BP 107/78 03/30/20 08:00 Pulse Ox 94 L 03/30/20 08:00 Weight - Most Recent: 221 lb 3.2 oz I&O - Last 24 hours: Intake & Output 03/29/20 03/30/20 03/30/20 22:59 06:59 14:59 Intake Total 680 350 Output Total 1000 800 Balance -320 -450 Lab Results - Last 24 hrs: Laboratory Results - last 24 hr 03/30/20 Range/Units 04:17 Sodium 138 L (140-148) mmol/L Potassium 3.7 (3.6-5.2) mmol/L Chloride 101 (100-108) mmol/L Carbon Dioxide 31 (21-32) mmol/L Anion Gap 9.7 (5.0-14.0) mmol/L BUN 21 H (7-18) mg/dL Creatinine 0.7 (0.6-1.0) mg/dL Est Cr Clr Drug Dosing 77.43 mL/min Estimated GFR (MDRD) > 60 (>60) Glucose 113 H (74-106) mg/dL Calcium 8.7 (8.5-10.1) mg/dL Med Orders - Current: Current Medications Acetaminophen (Tylenol) 650 mg PO Q4H PRN PRN Reason: Pain (Mild 1-3)/fever Albuterol (Proventil Neb Soln) 2.5 mg NEB Q4H PRN PRN Reason: Shortness Of Breath/wheezing Last Admin: 03/29/20 08:09 Dose: 2.5 mg Documented by: Albuterol/Ipratropium (Duoneb 3.0-0.5 Mg/3 Ml) 3 ml INH Q6H PRN PRN Reason: Shortness of Breath Cyclobenzaprine HCl (Flexeril) 5 mg PO TID PRN PRN Reason: Muscle Spasm Enoxaparin Sodium (Lovenox) 40 mg SUBCUT Q24H [facility] Last Admin: 03/29/20 17:09 Dose: 40 mg Documented by: Ondansetron HCl (Zofran) 4 mg IV Q4H PRN PRN Reason: Nausea/Vomiting Oxybutynin Chloride (Oxybutynin) 5 mg PO BID [facility] Last Admin: 03/30/20 09:18 Dose: 5 mg Documented by: Polyethylene Glycol (Miralax) 17 gm PO DAILY PRN PRN Reason: Constipation Pramipexole Dihydrochloride (Mirapex) 4 mg PO BEDTIME [facility] Last Admin: 03/29/20 20:47 Dose: 4 mg Documented by: Sodium Chloride (Saline Flush) 10 ml FLUSH ASDIRECTED PRN PRN Reason: Keep Vein Open Last Admin: 03/28/20 19:18 Dose: 10 ml Documented by: Discontinued Medications Furosemide (Lasix) 40 mg IVPUSH NOW ONE Stop: 03/28/20 17:43 Last Admin: 03/28/20 18:01 Dose: 40 mg Documented by: Furosemide (Lasix) 40 mg IVPUSH NOW ONE Stop: 03/29/20 08:21 Last Admin: 03/29/20 09:25 Dose: 40 mg Documented by: Furosemide (Lasix) 40 mg IVPUSH ONETIME ONE Stop: 03/29/20 18:01 Last Admin: 03/29/20 17:08 Dose: 40 mg Documented by: Furosemide (Lasix) 40 mg IVPUSH NOW ONE Stop: 03/30/20 08:31 Last Admin: 03/30/20 09:18 Dose: 40 mg Documented by: Sodium Chloride (Normal Saline) 100 mls @ 3 mls/sec IV ASDIRECTED [facility] Last Admin: 03/28/20 19:18 Dose: 3 mls/sec Documented by: Iopamidol (Isovue-370 (76%)) 100 ml IV . DIRECTED [facility] Last Admin: 03/28/20 19:18 Dose: 100 ml Documented by: Potassium Chloride (Klor-Con M20) 40 meq PO ONETIME ONE Stop: 03/30/20 08:31 Last Admin: 03/30/20 09:17 Dose: 40 meq Documented by: Sodium Chloride (Saline Flush) 10 ml FLUSH ONETIME ONE Stop: 03/28/20 17:35 Last Admin: 03/28/20 18:00 Dose: 10 ml Documented by: - Exam General: Reports: Alert, Oriented, Cooperative, No Acute Distress Lungs: Reports: Normal Respiratory Effort, Crackles. Denies: Rales, Stridor, Wheezing Cardiovascular: Reports: Regular Rate, Regular Rhythm, No Murmurs GI/Abdominal Exam: Soft, Non-Tender, No Organomegaly, No Distention Extremities: Non-Tender, Pedal Edema
== END 2020-03-30 11:50 | disposition home or self-care (01) | DRG 197 ==
LOC: JP.ICU 15:43
PROVIDERS: ADMIT Hospitalist; ATTEND Hospitalist
DX: J84.10 Pulmonary fibrosis, unspecified (principal); I50.32 Chronic diastolic (congestive) heart failure; H54.7 Unspecified visual loss; G25.81 Restless legs syndrome; F32.9 Major depressive disorder, single episode, unspecified; Z96.649 Presence of unspecified artificial hip joint; Z20.822 Contact with and (suspected) exposure to COVID-19; Z79.899 Other long term (current) drug therapy
CPT/HCPCS: 0241U; 36415; 71275; 80048; 80053; 83735; 84145; 84484; 85025; 86140; 94640; 94762; 99222; 99232; 99238; A9270-GY; J1650; J1940; Q9967

== ENCOUNTER 2021-07-17 06:30 | Day surgery (SDC) | payer MEDICARE, MEDICAID ==
[2021-07-17] MEDS: Sodium Chloride 0.9% 10 ML Syringe FLUSH PRN (07:26)
[2021-07-17 08:38] VITALS: BP 97/74; PULSE 67
== END 2021-07-17 08:39 | disposition home or self-care (01) ==
LOC: JP.SDS 06:30
PROVIDERS: ATTEND Ophthalmology
DX: H25.12 Age-related nuclear cataract, left eye (principal); K21.9 Gastro-esophageal reflux disease without esophagitis; F17.200 Nicotine dependence, unspecified, uncomplicated; J44.9 Chronic obstructive pulmonary disease, unspecified
CPT/HCPCS: J3490

== ENCOUNTER 2021-07-31 05:58 | Day surgery (SDC) | payer MEDICARE, MEDICAID ==
[~2021-07-31 05:58] MED LIST: Sodium Chloride 0.9% 10 ML Syringe FLUSH PRN
[2021-07-31 07:55] VITALS: BP 97/47; PULSE 65
[2021-07-31] MEDS ORDERED: Sodium Chloride 0.9% 10 ML Syringe FLUSH PRN (08:30)
== END 2021-07-31 08:15 | disposition home or self-care (01) ==
LOC: JP.SDS 05:58
PROVIDERS: ATTEND Ophthalmology
DX: H25.11 Age-related nuclear cataract, right eye (principal); J43.9 Emphysema, unspecified; K21.9 Gastro-esophageal reflux disease without esophagitis; Z88.8 Allergy status to other drugs, medicaments and biological substances
CPT/HCPCS: 66984; J3490; V2632

== ENCOUNTER 2022-04-27 13:48 | Inpatient (IN) | payer MEDICARE, MEDICAID ==
[2022-04-27 15:02] LABS: ESTIMATED GFR 100 mL/min (>60)
[2022-04-27] MEDS ORDERED: Furosemide 40 MG/4 ML VIAL IVPUSH ONE (17:13)
[2022-04-27] MEDS ORDERED: Sodium Chloride 0.9% 75 ML IV SCH (20:30)
[2022-04-27] MEDS ORDERED: Iopamidol 612 MG/ML 100 ML Bottle IV SCH (20:30)
[2022-04-27] MEDS ORDERED: Enoxaparin 80 MG/0.8 ML Syringe SUBCUT ONE (21:46)
[2022-04-28] MEDS ORDERED: ALPRAZolam 0.5 MG Tab PO ONE (02:44)
[2022-04-28] MEDS ORDERED: traMADol 50 MG Tab PO ONE (02:44)
[2022-04-28] MEDS ORDERED: Acetaminophen 500 MG Tab PO ONE (10:55)
[2022-04-28 11:30] LABS: CORONAVIRUS COVID-19 NAA NEGATIVE (NEGATIVE)
[2022-04-28] MEDS ORDERED: Ondansetron 4 MG/2 ML SDV IV PRN (11:32)
[2022-04-28] MEDS ORDERED: Sodium Chloride 0.9% 10 ML Syringe FLUSH PRN (11:32)
[2022-04-28] MEDS ORDERED: ALPRAZolam 0.25 MG Tab PO PRN (11:32)
[2022-04-28] MEDS ORDERED: Albuterol 0.083% 2.5 MG/3 ML Neb Soln NEB PRN (11:32)
[2022-04-28] MEDS ORDERED: Ipratropium 0.02% 0.5 MG/2.5 ML Neb Soln INH PRN (12:46)
[2022-04-28] MEDS ORDERED: Tiotropium Bromide 4 GM Inhalation Spray (2.5mcg/1 dose; 10 doses) INH PRN (13:37)
[2022-04-28] MEDS ORDERED: Pramipexole 0.5 MG Tab PO SCH (14:00)
[2022-04-28] MEDS ORDERED: rOPINIRole 1 MG Tab PO SCH (14:00)
[2022-04-28] MEDS ORDERED: LORazepam 0.5 MG Tab PO PRN (14:14)
[2022-04-28] MEDS: Nystatin Susp 100,000 Unit/ML 5 ML UD Cup PO SCH ×2 (15:16→22:05)
[2022-04-28] MEDS: Acetaminophen 325 MG Tab PO PRN (16:25)
[2022-04-28] MEDS: LORazepam 0.5 MG Tab PO PRN (16:44)
[2022-04-28] MEDS: Pramipexole 0.5 MG Tab PO SCH (20:08)
[2022-04-28] MEDS: Formoterol/Mometasone 200-5 MCG 8.8 GM Inhaler IH SCH (20:08)
[2022-04-28] MEDS: traMADol 50 MG Tab PO PRN (20:14)
[2022-04-29] MEDS: LORazepam 0.5 MG Tab PO PRN (00:24)
[2022-04-29] MEDS: Cyclobenzaprine 10 MG Tab PO PRN (00:26)
[2022-04-29] MEDS: Morphine 10 MG/0.5 ML Oral Syringe PO PRN ×5 (01:46→15:27)
[2022-04-29] MEDS: Nystatin Susp 100,000 Unit/ML 5 ML UD Cup PO SCH ×4 (05:27→21:43)
[2022-04-29] MEDS: Formoterol/Mometasone 200-5 MCG 8.8 GM Inhaler IH SCH ×2 (07:27→21:43)
[2022-04-29] MEDS: traMADol 50 MG Tab PO PRN (07:42)
[2022-04-29] MEDS ORDERED: Sodium Chloride 0.9% 10 ML Syringe FLUSH PRN (07:58)
[2022-04-29] MEDS ORDERED: Sodium Chloride 0.9% 100 ML IV SCH (08:00)
[2022-04-29] MEDS ORDERED: Iopamidol 755 Mg/ML 100 ML Bottle IV SCH (08:00)
[2022-04-29] MEDS ORDERED: Furosemide 40 MG Tab PO SCH (09:00)
[2022-04-29] MEDS ORDERED: Furosemide 20 MG/2 ML VIAL IVPUSH ONE ×2 (10:45→18:00)
[2022-04-29] MEDS: cefTRIAXone 1 GM in Sodium Chloride 0.9% 50 ML IV SCH (12:06)
[2022-04-29] MEDS: Pramipexole 0.5 MG Tab PO SCH (20:07)
[2022-04-30] MEDS: Morphine 10 MG/0.5 ML Oral Syringe PO PRN ×4 (00:16→21:32)
[2022-04-30] MEDS: Nystatin Susp 100,000 Unit/ML 5 ML UD Cup PO SCH ×4 (06:29→21:26)
[2022-04-30] MEDS: Formoterol/Mometasone 200-5 MCG 8.8 GM Inhaler IH SCH ×2 (07:29→21:27)
[2022-04-30] MEDS: cefTRIAXone 1 GM in Sodium Chloride 0.9% 50 ML IV SCH (11:54)
[2022-04-30] MEDS: Pramipexole 0.5 MG Tab PO SCH (21:26)
[2022-05-01] MEDS: Acetaminophen 325 MG Tab PO PRN (03:48)
[2022-05-01] MEDS: Morphine 10 MG/0.5 ML Oral Syringe PO PRN ×3 (03:48→14:41)
[2022-05-01] MEDS: Nystatin Susp 100,000 Unit/ML 5 ML UD Cup PO SCH ×2 (05:28→10:44)
[2022-05-01 06:36] VITALS: BP 126/76; PULSE 93
[2022-05-01] MEDS: Formoterol/Mometasone 200-5 MCG 8.8 GM Inhaler IH SCH (07:17)
[2022-05-01] MEDS: cefTRIAXone 1 GM in Sodium Chloride 0.9% 50 ML IV SCH (12:56)
[2022-05-01] MEDS: LORazepam 0.5 MG Tab PO PRN (14:40)
[2022-05-01] MEDS: Cyclobenzaprine 10 MG Tab PO PRN (14:40)
== END 2022-05-01 15:25 | disposition hospice, home (50) | DRG 951 ==
LOC: JP.ED 13:48 → JP.2SS 04-28 09:59
PROVIDERS: ADMIT Hospitalist; ATTEND Internal Medicine
PROC: 0W9B3ZZ Drainage of Left Pleural Cavity, Percutaneous Approach (ICD-10-PCS; principal; 2022-04-29)
DX: Z51.5 Encounter for palliative care (principal); I26.99 Other pulmonary embolism without acute cor pulmonale; J96.21 Acute and chronic respiratory failure with hypoxia; J96.22 Acute and chronic respiratory failure with hypercapnia; C34.92 Malignant neoplasm of unspecified part of left bronchus or lung; I50.32 Chronic diastolic (congestive) heart failure; N30.00 Acute cystitis without hematuria; C78.7 Secondary malignant neoplasm of liver and intrahepatic bile duct; Z20.822 Contact with and (suspected) exposure to COVID-19; J84.10 Pulmonary fibrosis, unspecified; B96.20 Unspecified Escherichia coli [E. coli] as the cause of diseases classified elsewhere; H54.7 Unspecified visual loss; K21.9 Gastro-esophageal reflux disease without esophagitis; M81.0 Age-related osteoporosis without current pathological fracture; Z96.649 Presence of unspecified artificial hip joint; Z98.49 Cataract extraction status, unspecified eye; Z79.899 Other long term (current) drug therapy; Z87.891 Personal history of nicotine dependence
CPT/HCPCS: 0241U; 36415; 36600; 71045; 71045-26; 71260; 71275; 71275-26; 80048; 80053; 81001; 82803; 83735; 83880; 85025; 87086; 87088; 87186; 93005; 94640; 99222; 99232; A9270-GY; J0696; J1650; J1940; J3490; Q9967